=== PATIENT | female | born 1965 | race Caucasian/White ===

== ENCOUNTER → 2017-02-18 | Day surgery (SDC) | payer BC ==
[~2017-02-18] MED LIST: ACETAMINOPHEN/HYDROcodone 325 MG/5 MG TAB ONE; AMIT10 PO; BUTR10DI2 TD; GABA100C4 PO; HYDR-2768 PO; HYDR-3129 PO; LACTATED RINGER'S 1000 ML INJ 1,000 ML ONE; LEVO50TA4 PO; LIDOCAINE HCL 1% 20 ML VIAL OTHER ONE; LORTA10 PO; MIDAZOLAM HCL 2 MG/2 ML VIAL ONE; MORPHINE SULFATE 4 MG/ML INJ ONE; PROPOFOL 200 MG/20 ML AMP IV ONE; PROT40TA PO; TRIAMCINOLONE ACETONIDE 40 MG/ML VIAL ONE
--- NOTE | 2017-02-18 17:02 | TN ---
cc: SAILAJA PHILLIPS DATE OF SURGERY: 02/18/2017. PREOPERATIVE DIAGNOSIS: 1. Osteoarthritis, right hip. 2. Arthrofibrosis right hip. POSTOPERATIVE DIAGNOSIS: 1. Osteoarthritis, right hip. 2. Arthrofibrosis, right hip. OPERATIVE PROCEDURE PERFORMED: 1. Manipulation of right hip under anesthesia. 2. Injection of right hip with Kenalog 40 milligrams. 3. Arthrogram of the right hip. 4. Use of fluoroscopy for percutaneous needle placement. 5. Intraoperative x-ray right hip, two views. SURGEON: Sailaja Phillips MD. ANESTHESIA: TIVA. ESTIMATED BLOOD LOSS: None. INDICATIONS FOR THE PROCEDURE: This is a 51-year-old female who is having progressive loss of range of motion of the right hip and pain. Investigative studies show evidence of mild arthritis of the right hip. Despite conservative care, the patient is painful and symptomatic and now presents for surgical treatment. The patient also is noted to have a separate low back condition and is being treated by pain management with injections. DESCRIPTION OF THE PROCEDURE IN DETAIL: The patient was brought to the operating room and given limited sedation. The right hip was manipulated under anesthesia. Under anesthesia, range of motion was: flexion 80, extension zero, internal rotation 20, external rotation 25, adduction 10, abduction 30. After manipulation, range of motion was flexion 110 degrees, extension 0, adduction 35 degrees, adduction 30, internal rotation 25 degrees, external rotation 40. The right hip was scrubbed with alcohol followed by Hibiclens followed Chloraprep and draped sterilely. A time-out had been done previously. A 22-gauge spinal needle was then advanced across the anterior aspect of the hip joint under fluoroscopy. It was placed in intra-articular position and confirmed. This was aspirated. We then injected contrast. There was minimal pitting and erosive changes. No leak of contrast was seen. We then injected with 40 mg of Kenalog and 3cc of 1% lidocaine plain. The patient was run through second range of motion. The patient was then awakened and taken to the recovery room in satisfactory condition. Sailaja Phillips MD [facility] [place] /4:47 PM /4:56 PM
== END | disposition home or self-care (01) ==
LOC: ESDC 14:48
PROVIDERS: ATTEND Orthopaedic Surgery Orthopaedic Surgery of the Spine
DX: M16.11 Unilateral primary osteoarthritis, right hip (principal); M24.651 Ankylosis, right hip
CPT/HCPCS: 01200; 27275; 73502; 76000; J2250; J2270; J3010; J3301; J7120